=== PATIENT | female | born 1980 | race Caucasian/White ===

== ENCOUNTER → 2016-04-01 | Outpatient (REF) | payer BC | LOC: M LABNEURO 17:10 | PROVIDERS: ATTEND Physician Assistant Medical | DX: G50.0 Trigeminal neuralgia (principal) ==

== ENCOUNTER → 2016-07-29 | Outpatient (REF) | payer BC | LOC: M LABNEURO 16:57 | PROVIDERS: ATTEND Physician Assistant Medical | DX: G50.0 Trigeminal neuralgia (principal) ==

== ENCOUNTER → 2016-08-29 | Outpatient (CLI) | payer BC ==
[2016-08-29 13:45] LABS: BASO % 0.5 % (0.0-1.0); EOS # 0.1 K/mm3 (0.0-0.50); EOS % 1.4 % (0.0-3.0); LARGE UNSTAINED CELL # 0.1 K/mm3 (0.0-0.4); LARGE UNSTAINED CELL % 1.3 % (0.0-4.0); LYMPH # 2.4 K/mm3 (1.5-4.5); LYMPH % 26.9 % (24.0-44.0); MEAN CORPUSCULAR HGB CONC 34.6 g/dl (32.0-36.5); MEAN CORPUSCULAR VOLUME 89.5 fl (80.0-96.0); MONO # 0.5 K/mm3 (0.0-0.8); MONO % 5.7 % (0.0-5.0); NEUTROPHILS # 5.5 K/mm3 (1.8-7.7); NEUTROPHILS % 64.2 % (36.0-66.0); PLATELET COUNT, AUTOMATED 267 k/mm3 (150-450); RED CELL DISTRIBUTION WIDTH 13.1 % (11.5-14.5); WHITE BLOOD COUNT 8.5 K/mm3 (4.0-10.0)
[2016-08-29 13:55] LABS: FOLATE > 24.0 NG/ML; VITAMIN B12 LEVEL 553 PG/ML
[2016-08-29 14:43] LABS: ALBUMIN 3.5 GM/DL (3.2-5.2); ALBUMIN/GLOBULIN RATIO 1.06 (1.00-1.93); ALKALINE PHOSPHATASE 107 U/L (45-117); ALT/SGPT 20 U/L (12-78); ANION GAP 6 MEQ/L (8-16); AST/SGOT 9 U/L (15-37); BILIRUBIN,TOTAL 0.5 MG/DL (0.2-1.0); BLOOD UREA NITROGEN 11 MG/DL (7-18); CALCIUM LEVEL 8.8 MG/DL (8.5-10.1); CARBON DIOXIDE LEVEL 31 MEQ/L (21-32); CHLORIDE LEVEL 105 MEQ/L (98-107); CREATININE FOR GFR 0.83 MG/DL (0.55-1.02); GLOMERULAR FILTRATION RATE > 60.0 (>60); GLUCOSE, FASTING 83 MG/DL (70-105); SODIUM LEVEL 142 MEQ/L (136-145); TOTAL PROTEIN 6.8 GM/DL (6.4-8.2)
== END ==
LOC: M WUC 09:33
PROVIDERS: ATTEND Physician Assistant Medical
DX: R53.83 Other fatigue (principal); R51 Headache; R63.5 Abnormal weight gain; R20.9 Unspecified disturbances of skin sensation

== ENCOUNTER → 2016-12-18 | Outpatient (CLI) | payer BC ==
[2016-12-18 20:03] LABS: CARBAMAZEPINE (TEGRETOL) LEVEL 5.4 UG/ML (4.0-10.0)
== END ==
LOC: M WUC 18:26
PROVIDERS: ATTEND Physician Assistant Medical
DX: G50.0 Trigeminal neuralgia (principal); E55.9 Vitamin D deficiency, unspecified

== ENCOUNTER → 2017-04-09 | Outpatient (CLI) | payer BC ==
[2017-04-09 20:50] LABS: BASO # 0.1 10^3/uL (0.0-0.2); BASO % 0.7 % (0.0-1.0); EOS # 0.2 10^3/uL (0.0-0.50); EOS % 1.9 % (0.0-3.0); HEMOGLOBIN 13.7 g/dl (12.0-16.0); IMMATURE GRANULOCYTE % 0.3 % (0-0); LYMPH % 40.7 % (24.0-44.0); MEAN CORPUSCULAR HGB CONC 32.6 g/dl (32.0-36.5); MONO # 0.9 10^3/uL (0.0-0.8); NEUTROPHILS # 4.6 10^3/uL (1.8-7.7); NEUTROPHILS % 47.4 % (36.0-66.0); PLATELET COUNT, AUTOMATED 307 10^3/uL (150-450); RED BLOOD COUNT 4.72 10^6/uL (4.00-5.40); RED CELL DISTRIBUTION WIDTH 13.2 % (11.5-14.5); WHITE BLOOD COUNT 9.8 10^3/uL (4.0-10.0)
[2017-04-09 20:58] LABS: TOTAL 25(OH) VITAMIN D 23.2 NG/ML (30.0-100.0)
[2017-04-09 21:03] LABS: SODIUM LEVEL 142 MEQ/L (136-145)
[2017-04-09 21:03] LABS: ALT/SGPT 27 U/L (12-78); AST/SGOT 14 U/L (7-37); CARBAMAZEPINE (TEGRETOL) LEVEL 2.4 UG/ML (4.0-10.0)
== END ==
LOC: M WUC 17:39
DX: G50.0 Trigeminal neuralgia (principal); E55.9 Vitamin D deficiency, unspecified; Z51.81 Encounter for therapeutic drug level monitoring
CPT/HCPCS: 84460

== ENCOUNTER → 2017-08-08 | Outpatient (CLI) | payer BC ==
[2017-08-10 11:09] LABS: TOTAL 25(OH) VITAMIN D 30.6 NG/ML (30.0-100.0)
== END ==
LOC: M WUC 09:56
DX: E55.9 Vitamin D deficiency, unspecified (principal)
CPT/HCPCS: 82306

== ENCOUNTER → 2017-10-14 | Outpatient (CLI) | payer BC ==
[~2017-10-14] MED LIST: LIDOCAINE 1% SDV INJ 30 ML VIAL As Ordered; MIDAZOLAM INJ 2 MG/2 ML VIAL (J2250) As Ordered; fentaNYL 100 MCG/2 ML INJECTION (J3010) As Ordered
[2017-10-14 17:26] LABS: APPEARANCE, CSF CLEAR (CLEAR); COLOR, CSF COLORLESS (COLORLESS); CSF DIFF IF INDICATED? NO (NO); CSF RBC < 2 10^3/uL (<2); CSF TUBE# CELL CNT TUBE 3; CSF WBC 3 /uL (0-10)
[2017-10-14 17:39] LABS: CSF TUBE# GLU TUBE 1; CSF TUBE# TP TUBE 1; TOTAL PROTEIN,CSF 27.5 MG/DL (15-45)
[2017-10-14 17:39] LABS: GLUCOSE CSF 46 MG/DL (40-75)
[2017-10-20 00:06] LABS: IMMUNOGLOBULIN G CSF 1.7 mg/dL (0.0-8.6)
== END ==
LOC: M PAIN 13:45
DX: H47.339 Pseudopapilledema of optic disc, unspecified eye (principal)
CPT/HCPCS: J2250

== ENCOUNTER → 2017-12-21 | Outpatient (REF) | payer BC ==
[2017-12-21 13:57] LABS: CARBAMAZEPINE (TEGRETOL) LEVEL 2.1 UG/ML (4.0-10.0)
== END ==
LOC: M LABNEURO 09:50
DX: G50.0 Trigeminal neuralgia (principal)

== ENCOUNTER → 2018-06-08 | Outpatient (CLI) | payer BC ==
[2018-06-08 19:23] LABS: RHEUMATOID FACTOR QUANT < 10.0 IU/ML (<15.0)
[2018-06-08 19:33] LABS: TOTAL 25(OH) VITAMIN D 22.6 NG/ML (30.0-100.0)
[2018-06-10 14:21] LABS: ANTINUCLEAR ANTIBODIES DIRECT Negative (Negative)
[2018-06-11 00:07] LABS: Lyme Disease IgG/IgM Antibodie <0.91 ISR (0.00-0.90); Lyme Disease IgM Ab Quantitati <0.80 index (0.00-0.79)
== END ==
LOC: M WUC 16:38
PROVIDERS: ATTEND Physician Assistant Medical
DX: M25.50 Pain in unspecified joint (principal); R51 Headache; E55.9 Vitamin D deficiency, unspecified

== ENCOUNTER → 2018-12-03 | Outpatient (CLI) | payer BC ==
[~2018-12-03] MED LIST changes: +ACET1TAB16 PO; +CARB200T98 PO; -LIDOCAINE 1% SDV INJ 30 ML VIAL As Ordered; -MIDAZOLAM INJ 2 MG/2 ML VIAL (J2250) As Ordered; +MULTCAP PO; +REQU1TAB14 PO; +SUMA100T2 PO; +ZONI25CA13 PO; -fentaNYL 100 MCG/2 ML INJECTION (J3010) As Ordered
--- NOTE | 2018-12-20 00:19 | ECWPNPC ---
PATIENT NAME: AMY MURILLO : 1980 GENDER: FEMALE VISIT DATE: 12/03/2018 DISCHARGE DATE: 12/03/18 1428 VISIT LOCKED DATE TIME: PHYSICIAN: DAVID IVY MD RESOURCE: DVAID IVY MD REASON FOR APPOINTMENT 1. OCCIPITAL HEADACHES HISTORY OF PRESENT ILLNESS NEW PATIENT CONSULT: WHEN DID YOUR PAIN FIRST START? . BRIEFLY DESCRIBE HOW YOUR PAIN STARTED? . HOW DOES YOUR PAIN CHANGE WITH TIME? . DOES YOUR PAIN AWAKEN YOU FROM SLEEP? . HOW MANY HOURS OF SLEEP DO YOU NORMALLY GET? . ANY DIAGNOSTIC TESTING? . FACILITY WHERE TESTS WERE DONE? ____. PAIN TREATMENT TREATMENT YES CANCER HAVE YOU EVER HAD ANY TYPE OF CANCER?NO NO. 38 YEAR OLD FEMALE PATIENT WITH A HISTORY OF CHRONIC HEADACHES. THE PATIENT DESCRIBES THE PAIN TENDER, SHARP, AND CONTINUOUS WITH A PAIN SCORE OF 3-6/10 DEPENDING ON PHYSICAL ACTIVITY. THE PATIENT STATES SHE HAS BEEN SUFFERING FROM THIS PAIN FOR AROUND 4 YEARS. THE PATIENT SAYS SHE IS BEING SEEN BY DR. LUCIEN TAMAYO IN [place], WHO PERFORMED MULTIPLE SPINAL TAPS TO REDUCE THE INTRACRANIAL PRESSURE. THE PATIENT SAYS AFTER THE PROCEDURES, HER SYMPTOMS OF HEADACHES AND NUMBNESS ON THE LEFT SIDE AND HEARING ISSUES OF THE RIGHT EAR DECREASED EACH TIME. THE PATIENT SAYS SHE WAS REFERRED BY DR. TAMAYO TO RECEIVE OCCIPITAL BLOCKS AT OUR CLINIC, SINCE IT WILL BE MORE CONVENIENT FOR HER. PATIENT DENIES UNEXPLAINABLE WEIGHT LOSS, FEVER, CHILLS, NEW CHANGES ON HER URINARY OR BOWEL CONTROL. PAIN SCREENING: PATIENT HAS A COMPLAINT OF ACUTE OR CHRONIC PAIN :YES FALL RISK SCREENING: SCREENING : NO FALLS IN THE PAST YEAR. MEDINA INVENTORY: QUESTIONNAIRE ASSESSEDTBD SCORE VALUE CALCULATED TBD CURRENT MEDICATIONS TAKING TEGRETOL 200 MG TABLET 1 TABLET ORALLY TWICE A DAY, NOTES: 10/14/17 0700 TAKING IMITREX 100 MG TABLET 1 TABLET NEEDED ORALLY , NOTES: 1 WEEK AGO TAKING TYLENOL WITH CODEINE #3 300-30 MG TABLET 1 TABLET NEEDED ORALLY NEEDED, NOTES: 1 WEEK AGO TAKING ZONISAMIDE 50 MG CAPSULE 1 TAB ORALLY ONCE DAILY NEEDED MEDICATION LIST REVIEWED AND RECONCILED WITH THE PATIENT PAST MEDICAL HISTORY HEAD ACHES PRECOUSIOUS MENSES LEFT SACROILIAC JOINT FUSED FROM CERVICAL DYSPLASIA ENDOMETRIOSIS ALLERGIES TOPAMAX: NUMBNESS WITH " PINS AND NEEDLES" - SIDE EFFECTS SURGICAL HISTORY TONSILLECTOMY 1995 LAPAROSCOPY, D&C 1999 CRYOSURGERY 2000 ANGIOGRAM 11/2017 LUMBAR PUNCTURE 03/2018 LUMBAR PUNCTURE 01/2019 LUMBAR PUNCTURE FAMILY HISTORY FATHER: ALIVE, DIAGNOSED WITH DIABETES, HYPERTENSION MOTHER: ALIVE 1 SON(S) , 1 DAUGHTER(S) - HEALTHY. FATHER COPD, FATHER ON BLOOD THINNER, AAA, ANEURYSM NEAR THE HEARTSON HAS SPECIFIC ANTIBODY DEFICENCY, AND ASTHMA. SOCIAL HISTORY GENERAL: TOBACCO USE ARE YOU A:NONSMOKER OTHERS AT HOME: CHILDREN, SPOUSE. HOUSING: OWNS HOME. EDUCATION LEVEL OF EDUCATION:COLLEGE DIET: REGULAR. LANGUAGE LANGUAGES SPOKEN:BURKINAN RECREATIONAL DRUG USE DRUG USE?NO EXERCISE: DAILY. LEARNING BARRIERS / SPECIAL NEEDS BARRIERS TO LEARNING?NO PAIN CLINIC PFS, CLERGY, PUBLIC HEALTH REFERRALS PFS REFERRAL NEEDED?NO CLERGY REFERRAL NEEDED?NO PUBLIC HEALTH REFERRAL NEEDED?NO WAS THE PROVIDER NOTIFIED OF ANY PERTINENT INFO?NO HAS THE PATIENT BEEN EDUCATED REGARDING HIS/HER PLAN OF CARE?YES HAS THE PATIENT BEEN EDUCATED REGARDING PAIN, THE RISK FOR PAIN, THE IMPORTANCE OF EFFECTIVE PAIN MANAGEMENT, AND THE PAIN ASSESSMENT PROCESS?YES LATEX QUESTIONNAIRE LATEX ALLERGY : HAVE YOU EVER DEVELOPED ANY TYPE OF REACTION AFTER HANDLING LATEX PRODUCTS SUCH RUBBER GLOVES, CONDOMS, DIAPHRAGMS, BALLOONS, SOCKS, OR UNDERWEAR?NO LATEX ALLERGY : HAVE YOU EVER DEVELOPED ANY TYPE OF REACTION DURING OR AFTER DENTAL APPOINTMENT, VAGINAL/RECTAL EXAMINATION, SURGICAL PROCEDURE, OR ANY OTHER EXPOSURE?NO LATEX RISK : HAVE YOU EVER HAD ANY DIFFICULTY BREATHING OR HIVES AFTER EATING OR HANDLING ANY FRUITS, OR VEGETABLES; SUCH KIWI, BANANAS, STONE FRUITS, OR CHESTNUTSNO LATEX RISK : DO YOU HAVE A PREVIOUS PERSONAL HISTORY OF MORE THAN NINE SURGERIES, SPINA BIFIDA, OR REPEATED CATHERIZATIONS? NO LATEX RISK : ARE YOU FREQUENTLY EXPOSED TO LATEX PRODUCTS IN YOUR OCCUPATION?NO DATE ASKED : 12/03/2018 CAFFEINE CAFFEINE USE?YES HOW OFTEN AND HOW MUCH? 1 CUP OF COFFEE PER DAY ADVANCE DIRECTIVE ADVANCE DIRECTIVE DISCUSSED WITH PATIENT:YES JIL MURILLO () [phone] ANABAPTISM [id number] BAHAI MARITAL STATUS: . 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 HOSPITALIZATION/MAJOR DIAGNOSTIC PROCEDURE VAGINAL 2006 VAGINAL 2010 TONSILITIS 1996 REVIEW OF SYSTEMS REVIEWED BY: PROVIDER: DAVID IVY MD . CONSTITUTIONAL: ANY CHANGE IN YOUR MEDICAL CONDITION? NO . CHILLS NO . FEVER NO . INFECTION: DO YOU HAVE NEW INFECTIONS? NO . DO YOU HAVE HISTORY OF MRSA? NO . MUSCULOSKELETAL: ANY NEW PATTERNS OF PAIN OR NUMBNESS? NO . SYTEMIC LUPUS NO . GASTROENTEROLOGY: ANY NEW CHANGE IN BOWEL CONTROL? NO . BARRETTS ESOPHAGUS NO . CIRRHOSIS NO . HEPATITIS NO . LIVER FAILURE NO . ACID REFLUX NO . UNEXPLAINED WEIGHT LOSS NO . GENITOURINARY: ANY NEW CHANGE IN BLADDER CONTROL? NO . IS THERE A CHANCE YOU COULD BE ? NO . HEMATOLOGY/LYMPH: DO YOU TAKE ANY BLOOD THINNERS? (FOR EXAMPLE- COUMADIN, PLAVIX, AGGRENOX, PLATEL, PRADAXA, OR XARELTO) NO . WHEN WAS YOUR LAST DOSE? DATE: TIME: . LOW PLATELET COUNT NO . SICKLE CELL DISEASE NO . VON WILLIEBRANDS NO . FACTOR V LEIDEN NO . THALLASEMIA NO . ANEMIA NO . EASY BRUISING NO . NEUROLOGY: HAVE YOU FALLEN IN THE PAST 12 MONTHS? NO . ANY NEW EXTREMITY NUMBNESS OR WEAKNESS? NO . HEAD INJURY NO . DEMENTIA NO . CEREBRAL PALSY NO . MULTIPLE SCLEROSIS NO . DIZZINESS NO, INTERMITTENT, LASTING FOR HOURS . HEADACHE NO . STROKES NO . VERTIGO NO . CARDIOLOGY: DO YOU HAVE A PACEMAKER OR DEFIBRILLATOR? NO . ANGINA NO . HEART ATTACK NO . HEART SURGERY NO . CONGESTIVE HEART FAILURE/FLUID OVERLOAD NO . CHEST PAIN NO . HIGH BLOOD PRESSURE NO . IRREGULAR HEART BEAT NO . RESPIRATORY: HAVE YOU BEEN SICK IN THE PAST WEEK? NO . FEVER NO . FLU LIKE SYMPTOMS? NO . CPAP NO . BYPAP NO . ASTHMA NO . EMPHYSEMA NO . CHRONIC LUNG DISEASES NO . SHORTNESS OF BREATH ON EXERTION NO . DO YOU USE ANY TYPE OF TOBACCO (SMOKE, SMOKELESS, CHEW)? NO . COUGH NO . SNORING NO . INTEGUMENTARY: DO YOU HAVE ANY RASHES OR OPEN SORES? NO . ALLERGIC/IMMUNO: ARE YOU ALLERGIC TO IV DYE? NO . ANY NEW ALLERGIES? NO . PSYCHIATRIC: DO YOU HAVE THOUGHTS OF HURTING YOURSELF OR SOMEONE ELSE? NO . ARE YOU ABUSED, NEGLECTED, OR IN AN UNSAFE ENVIRONMENT? NO . ENDOCRINOLOGY: ARE YOU DIABETIC? NO . THYROID DISORDER NO . OTHER: DO YOU NEED ANY PRESCRIPTIONS? NO . IF YES, PLEASE LIST: ____ . ANY NEW PROBLEMS WITH YOUR MEDICATIONS? NO . WHEN DID YOU LAST EAT? ____ . WHEN DID YOU LAST DRINK? ____ . WHAT DID YOU LAST DRINK? ____ . NAME OF PERSON DRIVING YOU HOME? ____ . DO YOU HAVE ANY OTHER QUESTIONS OR CONCERNS NO . VITAL SIGNS WT 200 LBS, HT 66", BMI 32.28 INDEX, BP 130/81 MM HG, HR 91 /MIN, RR 16 /MIN, TEMP 96.0 F, OXYGEN SAT % 97%, NA INITIALS AW 1140, REVIEWED BY: VD. EXAMINATION GENERAL EXAMINATION: PATIENT IS ALERT O X 3 AND COOPERATIVE. LUNGS CLEAR, TO AUSCULTATION. HEART: NO MURMURS OR GALLOPS; FACIAL CRANIAL NERVES ARE GROSSLY NORMAL. GOOD SYMMETRY OF FACIAL MUSCLE MOVEMENT. NORMAL VISUAL GARDNER. TENDERNESS IN THE OCCIPITAL AREA. TENDERNESS IN THE CERVICAL AREA WITH EXTENSION AND ROTATION OF THE NECK. HAND PHYSICIAN AIDE STRENGTH IS NORMAL ON BOTH SIDES. X-RAY OF THE CERVICAL SPINE DONE ON 07/21/2013 SHOWS STRAIGHTENING OF THE SPINE WITH DECREASED EXTENSION. MRI OF THE BRAIN DONE ON 07/21/2013 SHOWS WITHIN NORMAL LIMITS. ASSESSMENTS BILATERAL OCCIPITAL NEURALGIA - M54.81 (PRIMARY) HISTORY OF INCREASED INTRACRANIAL PRESSURE. TREATMENT BILATERAL OCCIPITAL NEURALGIA CLINICAL NOTES: WE DISCUSSED SEVERAL ISSUES WITH MS. MURILLO' PAIN MANAGEMENT CASE. DUE TO THE CONSTANT HEADACHES AND FACE NUMBNESS, I WOULD LIKE TO MOVE FORWARD WITH AN OCCIPITAL BLOCK. I AM LOOKING FOR LONG LASTING PAIN RELIEF FROM THIS INJECTION FOR THE PATIENT. I WOULD LIKE TO DISCUSS THE PATIENT'S CASE WITH DR. TAMAYO AND TO CLARIFY IF THE PATIENT WAS PRESCRIBED AN EPISHOT. I WILL ALSO REQUEST FOR A COPY OF THE PATIENT'S RECENT CERVICAL MRI DONE AT [facility]. THE PATIENT WILL FOLLOW UP IN SEVERAL WEEKS AFTER THE PROCEDURE. INSTRUCTIONS WERE GIVEN, QUESTIONS WERE ANSWERED, PATIENT REPORTS UNDERSTANDING AND AGREES WITH THE PLAN. I, RAMONA TAVAREZ, DOCUMENTED THE ABOVE INFORMATION ACTING A SCRIBE FOR DR. IVY. I HAVE REVIEWED THE ABOVE DOCUMENT, WRITTEN BY RAMONA MCLAIN AND I VERIFY THAT IT IS ACCURATE. DEAR LUCIEN TAMAYO MD: THANK YOU FOR YOUR KIND REFERRAL OF AMY MURILLO. IF YOU WANT TO DISCUSS HER CASE WITH ME PLEASE CALL ME AT THE PAIN CENTER AT [phone]. SINCERELY, DAVID IVY MD PAIN MEDICINE . OTHERS NOTES: OCCIPITAL NEURALGIA MATERIAL WAS PUBLISHED TO [employer],OCCIPITAL NEURALGIA MATERIAL WAS PRINTED. PREVENTIVE MEDICINE PAIN CLINIC TEACHING: PROCEDURE TEACHING PRE OCCIPITAL NERVE BLOCK INSTRUCTIONS REVIEWED WITH PT. VERBALIZED UNDERSTANDING.. PROCEDURE CODES FA211 ESTABILISHED PATIENT [facility] CHARGE G8427 CURRENT MEDS W/DOSAGES DOCUMENTED G8730 PAIN ASSESS POS TOOL F/U PLAN DOC DISPOSITION & COMMUNICATION FOLLOW UP REASON: OCCIPITAL BLOCK ELECTRONICALLY SIGNED BY DAVID IVY MD, MD ON 12/19/2018 AT 04:47 PM EDT DISCLAIMER : THIS IS A VISIT SUMMARY EXTRACTED FROM THE [employer] CHART. IT IS NOT A COPY OF THE [employer] PROGRESS NOTE. HIRAM
== END ==
LOC: M PAIN 11:30
PROVIDERS: ATTEND Anesthesiology
DX: M54.81 Occipital neuralgia (principal); G89.29 Other chronic pain; Z88.8 Allergy status to other drugs, medicaments and biological substances; Z79.899 Other long term (current) drug therapy

== ENCOUNTER → 2019-01-15 | Outpatient (CLI) | payer BC ==
[~2019-01-15] MED LIST changes: -ZONI25CA13 PO; +ZONI25CA2 PO
[2019-01-15 12:44] LABS: BASO # 0.1 10^3/uL (0.0-0.2); BASO % 0.7 % (0.0-1.0); EOS # 0.2 10^3/uL (0.0-0.5); EOS % 1.8 % (0.0-3.0); HEMATOCRIT 45.5 % (36.0-47.0); HEMOGLOBIN 14.8 g/dl (12.0-15.5); LYMPH # 2.7 10^3/uL (1.5-5.0); LYMPH % 25.5 % (24.0-44.0); MEAN CORPUSCULAR HEMOGLOBIN 28.8 pg (27.0-33.0); MEAN CORPUSCULAR HGB CONC 32.5 g/dl (32.0-36.5); MEAN CORPUSCULAR VOLUME 88.7 fl (80.0-96.0); MONO # 0.8 10^3/uL (0.0-0.8); MONO % 7.4 % (0.0-5.0); NEUTROPHILS # 6.8 10^3/uL (1.5-8.5); PLATELET COUNT, AUTOMATED 313 10^3/uL (150-450); RED BLOOD COUNT 5.13 10^6/uL (4.00-5.40); WHITE BLOOD COUNT 10.6 10^3/uL (4.0-10.0)
[2019-01-15 12:51] LABS: ALBUMIN 3.5 GM/DL (3.2-5.2); ALT/SGPT 23 U/L (12-78); BILIRUBIN,TOTAL 0.4 MG/DL (0.2-1.0); BLOOD UREA NITROGEN 16 MG/DL (7-18); CALCIUM LEVEL 8.8 MG/DL (8.5-10.1); CARBON DIOXIDE LEVEL 27 MEQ/L (21-32); CHLORIDE LEVEL 108 MEQ/L (98-107); CREATININE FOR GFR 0.83 MG/DL (0.55-1.30); GLOMERULAR FILTRATION RATE > 60.0 (>60); GLUCOSE, FASTING 101 MG/DL (70-100); POTASSIUM SERUM 4.1 MEQ/L (3.5-5.1); SODIUM LEVEL 141 MEQ/L (136-145); TOTAL PROTEIN 7.1 GM/DL (6.4-8.2)
== END ==
LOC: M WUC 09:03
PROVIDERS: ATTEND Physician Assistant
DX: Z01.818 Encounter for other preprocedural examination (principal)

== ENCOUNTER 2019-01-27 10:26 | Day surgery (SDC) | payer BC ==
[~2019-01-27] VITALS: Ht 162.6 cm; Wt 89.3 kg
[~2019-01-27 10:26] MED LIST changes: +LR 1,000 ML IV SCH; +PHENAZOPYRIDINE 100 MG TAB PO ONE; +ceFAZolin SOD 2 GM in IV 1 EA IV ONE
[2019-01-27] MEDS ORDERED: KETOROLAC 60 MG/2 ML VIAL (J1885) As Ordered ONE (10:35)
[2019-01-27] MEDS ORDERED: PROPOFOL 200 MG/20 ML VIAL As Ordered ONE ×2 (10:35→16:21)
[2019-01-27] MEDS ORDERED: ONDANSETRON 4MG/2ML VIAL (J2405) As Ordered ONE (10:35)
[2019-01-27] MEDS ORDERED: LIDOCAINE 2% INJ 100 MG/5 ML SDV (FOR ANES.) As Ordered ONE ×3 (10:35→15:59)
[2019-01-27] MEDS ORDERED: SUGAMMADEX SODIUM 500 MG/5 ML VIAL (BRIDION) As Ordered ONE (10:35)
[2019-01-27] MEDS ORDERED: ROCURONIUM BROMIDE 50 MG/5 ML VIAL As Ordered ONE (10:35)
[2019-01-27] MEDS ORDERED: dexameTHASONE 4 MG/ML 1ML VIAL (J1100) As Ordered ONE ×2 (10:35→10:36)
[2019-01-27] MEDS ORDERED: KETAMINE HCL 200 MG/20 ML VIAL As Ordered ONE (10:36)
[2019-01-27] MEDS ORDERED: METHOCARBAMOL 1,000 MG/10 ML VIAL (J2800) As Ordered ONE (10:36)
[2019-01-27] MEDS ORDERED: MIDAZOLAM INJ 2 MG/2 ML VIAL (J2250) As Ordered ONE (10:37)
[2019-01-27] MEDS ORDERED: fentaNYL 100 MCG/2 ML INJECTION (J3010) As Ordered ONE (10:37)
[2019-01-27] MEDS ORDERED: HYDROmorphone HCL 2 MG/ML 1ML VIAL (J1170) As Ordered ONE (10:37)
[2019-01-27] MEDS ORDERED: PROPOFOL 500 MG/50 ML VIAL As Ordered ONE ×2 (10:38→13:31)
[2019-01-27] MEDS ORDERED: ACETAMINOPHEN 1000MG 100ML IV BTL (OFIRMEV) (J0131 PER 10MG) As Ordered ONE ×2 (10:47→13:35)
[2019-01-27 10:51] LABS: HEMATOCRIT 44.2 % (36.0-47.0); HEMOGLOBIN 14.6 g/dl (12.0-15.5); MEAN CORPUSCULAR HEMOGLOBIN 29.3 pg (27.0-33.0); MEAN CORPUSCULAR VOLUME 88.6 fl (80.0-96.0); PLATELET COUNT, AUTOMATED 326 10^3/uL (150-450); RED BLOOD COUNT 4.99 10^6/uL (4.00-5.40); WHITE BLOOD COUNT 7.7 10^3/uL (4.0-10.0)
[2019-01-27] MEDS ORDERED: VASOPRESSIN INJ 20 UNITS/ML VIAL As Ordered ONE (12:22)
[2019-01-27] MEDS ORDERED: MORPHINE 1MG/ML IN 0.9% NACL 100ML IV BAG As Ordered ONE (16:42)
[2019-01-27] MEDS ORDERED: MORPHINE 1MG/ML IN 0.9% NACL 100ML IV BAG IV PRN (17:00)
[2019-01-27] MEDS ORDERED: IBUPROFEN 600 MG TAB PO PRN (17:00)
[2019-01-27] MEDS ORDERED: diphenhydrAMINE INJ 50MG/ML VIAL (J1200) IV PRN (17:00)
[2019-01-27] MEDS ORDERED: NALBUPHINE HCL 10 MG/ML AMP (J2300) IV PRN (17:00)
[2019-01-27] MEDS ORDERED: EPIDURAL/PCA KEYS XX PRN (17:00)
[2019-01-27] MEDS ORDERED: NALOXONE INJ 0.4 MG/1 ML VIAL (J2310) IV PRN (17:00)
[2019-01-27] MEDS ORDERED: ONDANSETRON 4MG/2ML VIAL (J2405) IV PRN (17:15)
[2019-01-27] MEDS ORDERED: MEPERIDINE INJ 25 MG/ML VIAL (J2175) IV PRN (17:15)
[2019-01-27] MEDS ORDERED: oxyCODONE 5MG TAB PO PRN (17:15)
[2019-01-27] MEDS ORDERED: METOCLOPRAMIDE INJ 10MG/2ML VIAL (J2765) IV PRN (17:15)
[2019-01-27] MEDS ORDERED: fentaNYL 100 MCG/2 ML INJECTION (J3010) IV PRN (17:15)
[2019-01-27] MEDS ORDERED: PERCOCET 5MG/325MG TAB As Ordered ONE (17:33)
[2019-01-27 18:05] VITALS: BP 143/62
[2019-01-27 18:30] VITALS: BP 107/53
--- NOTE | 2019-01-27 18:42 | RO ---
DATE OF PROCEDURE: 01/27/2019 PREOPERATIVE DIAGNOSES: Symptomatic prolapse, failed pessary. POSTOPERATIVE DIAGNOSES: Symptomatic prolapse, failed pessary. PROCEDURE: Total vaginal hysterectomy with bilateral salpingectomy, intraperitoneal enterocele repair, then extraperitoneal sacral spinous suspension of the vaginal apex, anterior and posterior repair with cystourethroscopy and perineorrhaphy. SURGEON: Beatriz Pena MD TRAINMAN: None. ANESTHESIA: General endotracheal anesthesia. BRIEF DESCRIPTION OF PROCEDURE AND FINDINGS: Ofelia was brought to the operating room where sufficient general endotracheal anesthesia was induced. She was prepped and draped in the usual sterile fashion with the bladder emptied. The patient had taken Pyridium preoperatively. The cervix was then grasped with a single tooth tenacula and a circumferential incision made around the base of the cervix. The cardinal ligaments were then isolated, clamped, transected and ligated using MilesFraga clamps which were used throughout this portion of the case and #0 Vicryl suture which was also used throughout this portion of the case. The ureterosacral ligaments were then clamped, transected and ligated. They were somewhat attenuated and there was a posterior detect in the midline as well as some more towards the middle of the vagina. But, at this point, we had entry into the posterior peritoneum and the ureterosacrals were clamped, transected and ligated and secured to the vagina for later resecuring at the closure. Then, we dissected anteriorly for the bladder flap and then the uterine vasculature was carefully isolated, clamped, transected and ligated in a sequential fashion along the lateral aspect of the uterus until the level of the uteroovarian suspensory ligaments reached, which were also clamped, transected and ligated with the ovaries left in place in this 38-year-old individual and then the mesentery of the tubes were carefully brought down and progressively clamped, transected and ligated so that the uterus with the bilateral fallopian tubes could be delivered. Those pedicles were carefully evaluated. Good hemostasis was found on the left of the right side. The round ligament pedicle was then oversewn again and following this we had good hemostasis on the right as well and we did have that sort of midline posterior defect, so a Pederson culdoplasty intraperitoneal was performed and then the peritoneum itself closed over. Then extraperitoneally we dissected posteriorly for the sacrospinous suspension from a posterior approach. We also dissected anteriorly to free up the perivesical tissues and the anterior vaginal wall for the anterior repair. We then dissected to the sacrospinous ligament, having cleared it, we used two Anchorsure anchors. Each of those anchors had two Maxon #2-0 suture so in the end we had four Maxons to work with and we did a 4 point apical support coming much further down posteriorly and getting a good anterior support with that anterior pair in the sacrospinous suspension. We still had quite a bit of laxity posteriorly. We did close the cuff itself of course with #0 Vicryl and we used the Maxon to lift the tissues up and scoped her. We found normal jets of urine bilaterally. We did have to rinse out the bladder a little bit, she had quite a good affect from her Peridium, so the pictures are a little delayed. Apparently my reflexes are not as good as they could be today, but in person it was quite easy to see jets of urine bilaterally and there was no suture nor evidence of injury to the bladder and of course we did not use cautery, so there cannot be that kind of injury. But we had the cuff closed and after scoping her and emptying out the bladder again and finishing off the rest of the ties on the sacrospinous suspension. We had decent apical and anterior support and this of course still sexually active 38-year-old. The perineum itself had a lot of laxity at the posterior aspect of the vagina and so we removed a triangle shape of tissue, inverted triangle at the perineum for the perineorrhaphy and then another triangle of vaginal tissue excised and we had more left-sided defects than right. I was very careful, this patient absolutely wanted functional length and she wanted functional length more than she wanted correction, but she also wanted correction because of quite a bit of laxity. There was almost a Malawian cheese aspect to the rectovaginal septum, more so on the left and so we did a side to side plication, but I went a little past half way up the vagina and not higher, because I really did not want a result in over correction and discomfort. I also found absence of the perineal body, so we recreated that with #0 Vicryl and there was a separation of the rectovaginal septum from the perineal body and so we reconnected that with #0 Vicryl, but used #2-0 in the posterior repair cephalad from the perineal body. We then having resupported the posterior vagina reconnected the rectovaginal septum to the perineum and done the perineorrhaphy, then also closed the skin over these tissues using #2-0 Vicryl for that closure. At that point we had good support. The apex of the vagina to the patient's left. There was still about a quarter size sort of softer area, but with all the other normal support and the patient's desire to maintain optimal function, I felt that this was the optimal point to get to for her repair today. The case was then ended with the Hassan placed. Final procedure: Total hysterectomy, salpingectomy, enterocele repair, modified Pederson sacrospinous suspension, of course, extraperitoneal, anterior and posterior repair, cystourethroscopy, perineorrhaphy. She did have a rectal exam after the case to confirm absence of injury to the rectum. ESTIMATED BLOOD LOSS: About 100 mL. FLUIDS REPLACED: Crystalloid. COMPLICATIONS: None. CONDITION AND DISPOSITION: Ofelia tolerated the procedure well and was recovering in the recovery room in good condition.
[2019-01-27] MEDS: LR 1,000 ML IV SCH (19:00)
[2019-01-27 19:30] VITALS: BP 99/55
[2019-01-27 20:30] VITALS: BP 100/58
[2019-01-27 21:30] VITALS: BP 106/59
[2019-01-27 22:30] VITALS: BP 89/52
[2019-01-28] VITALS: BP 97/53
[2019-01-28 04:00] VITALS: BP 94/50
[2019-01-28] MEDS: LR 1,000 ML IV SCH (04:00)
[2019-01-28] MEDS ORDERED: NORCO, ANEXSIA 5/325MG TABLET (HYDROcodone/ACETAMINOPHEN) PO PRN (06:00)
[2019-01-28 07:04] LABS: HEMATOCRIT 33.6 % (36.0-47.0); MEAN CORPUSCULAR HEMOGLOBIN 29.3 pg (27.0-33.0); MEAN CORPUSCULAR HGB CONC 33.3 g/dl (32.0-36.5); PLATELET COUNT, AUTOMATED 309 10^3/uL (150-450); RED BLOOD COUNT 3.82 10^6/uL (4.00-5.40); WHITE BLOOD COUNT 18.4 10^3/uL (4.0-10.0)
[2019-01-28 07:09] LABS: HEMOGLOBIN 11.2 g/dl (12.0-15.5)
== END 2019-01-28 09:45 | disposition home or self-care (01) ==
LOC: M SDC 10:26 → M PED 18:05 → M SDC 01-28 09:45
PROVIDERS: ATTEND Obstetrics & Gynecology
DX: N81.9 Female genital prolapse, unspecified (principal); G43.909 Migraine, unspecified, not intractable, without status migrainosus; G93.2 Benign intracranial hypertension; Z79.899 Other long term (current) drug therapy
CPT/HCPCS: 36415; 57265; 57282; 58262; 81025; 85027; 86850; 86900; 86901; 88307; 96360; 96361; C1713; J0131; J0690; J1100; J1170; J2250; J2405; J2800; J3010

== ENCOUNTER → 2019-02-02 | Outpatient (CLI) | payer BC ==
[~2019-02-02] MED LIST changes: +BUPIVACAINE HCL 0.25% 10 ML VIAL As Ordered ONE; +BUPIVACAINE HCL 0.25% 30 ML VIAL As Ordered ONE; -LR 1,000 ML IV SCH; -PHENAZOPYRIDINE 100 MG TAB PO ONE; -ceFAZolin SOD 2 GM in IV 1 EA IV ONE; +diazePAM 5 MG TAB As Ordered ONE; +oxyCODONE 5MG TAB As Ordered ONE
--- NOTE | 2019-02-10 02:31 | ECWPNPC ---
PATIENT NAME: AMY MURILLO : 1980 GENDER: FEMALE VISIT DATE: 02/02/2019 DISCHARGE DATE: 02/02/19 1133 VISIT LOCKED DATE TIME: PHYSICIAN: DAVID IVY MD RESOURCE: DAVID IVY MD REASON FOR APPOINTMENT 1. OCCIPITAL NERVE BLK HISTORY OF PRESENT ILLNESS HISTORY OF PRESENT ILLNESS: PAIN THE PATIENT DESCRIBES THE PAIN... FALL RISK SCREENING: SCREENING :NO FALLS REPORTED IN THE LAST YEAR CURRENT MEDICATIONS TAKING IMITREX 100 MG TABLET 1 TABLET NEEDED ORALLY , NOTES: MORE THAN 1 WEEK AGO TAKING HYDROCODONE-ACETAMINOPHEN 5-325 MG TABLET 2 TABLETS NEEDED ORALLY EVERY 4 HRS, NOTES: 02/01/191999 TAKING IBUPROFEN 600 MG TABLET 1 TABLET WITH FOOD OR MILK NEEDED ORALLY EVERY 6 HRS, NOTES: 02-01-191999 NOT-TAKING TEGRETOL 200 MG TABLET 1 TABLET ORALLY TWICE A DAY NOT-TAKING TYLENOL WITH CODEINE #3 300-30 MG TABLET 1 TABLET NEEDED ORALLY NEEDED, NOTES: 1 WEEK AGO NOT-TAKING ZONISAMIDE 50 MG CAPSULE 1 TAB ORALLY ONCE DAILY NEEDED MEDICATION LIST REVIEWED AND RECONCILED WITH THE PATIENT PAST MEDICAL HISTORY HEAD ACHES PRECOUSIOUS MENSES LEFT SACROILIAC JOINT FUSED FROM CERVICAL DYSPLASIA ENDOMETRIOSIS RECTOCELE ALLERGIES TOPAMAX: NUMBNESS WITH " PINS AND NEEDLES" - SIDE EFFECTS SURGICAL HISTORY TONSILLECTOMY 1995 LAPAROSCOPY, D&C 1999 CRYOSURGERY 2000 ANGIOGRAM 11/2017 LUMBAR PUNCTURE 03/2018 LUMBAR PUNCTURE 01/2019 LUMBAR PUNCTURE VAGINAL HYSTERECTOMY ANTERIOR/POSTERIOR REPAIR 01/2019 FAMILY HISTORY FATHER: ALIVE, DIAGNOSED WITH DIABETES, HYPERTENSION MOTHER: ALIVE 1 SON(S) , 1 DAUGHTER(S) - HEALTHY. FATHER COPD, FATHER ON BLOOD THINNER, AAA, ANEURYSM NEAR THE HEARTSON HAS SPECIFIC ANTIBODY DEFICENCY, AND ASTHMA. SOCIAL HISTORY GENERAL: TOBACCO USE ARE YOU A:NONSMOKER OTHERS AT HOME: CHILDREN, SPOUSE. HOUSING: OWNS HOME. EDUCATION LEVEL OF EDUCATION:COLLEGE DIET: REGULAR. LANGUAGE LANGUAGES SPOKEN:AUSTRALIAN RECREATIONAL DRUG USE DRUG USE?NO EXERCISE: DAILY. LEARNING BARRIERS / SPECIAL NEEDS BARRIERS TO LEARNING?NO PAIN CLINIC PFS, CLERGY, PUBLIC HEALTH REFERRALS PFS REFERRAL NEEDED?NO CLERGY REFERRAL NEEDED?NO PUBLIC HEALTH REFERRAL NEEDED?NO WAS THE PROVIDER NOTIFIED OF ANY PERTINENT INFO?NO HAS THE PATIENT BEEN EDUCATED REGARDING HIS/HER PLAN OF CARE?YES HAS THE PATIENT BEEN EDUCATED REGARDING PAIN, THE RISK FOR PAIN, THE IMPORTANCE OF EFFECTIVE PAIN MANAGEMENT, AND THE PAIN ASSESSMENT PROCESS?YES LATEX QUESTIONNAIRE LATEX ALLERGY : HAVE YOU EVER DEVELOPED ANY TYPE OF REACTION AFTER HANDLING LATEX PRODUCTS SUCH RUBBER GLOVES, CONDOMS, DIAPHRAGMS, BALLOONS, SOCKS, OR UNDERWEAR?NO LATEX ALLERGY : HAVE YOU EVER DEVELOPED ANY TYPE OF REACTION DURING OR AFTER DENTAL APPOINTMENT, VAGINAL/RECTAL EXAMINATION, SURGICAL PROCEDURE, OR ANY OTHER EXPOSURE?NO LATEX RISK : HAVE YOU EVER HAD ANY DIFFICULTY BREATHING OR HIVES AFTER EATING OR HANDLING ANY FRUITS, OR VEGETABLES; SUCH KIWI, BANANAS, STONE FRUITS, OR CHESTNUTSNO LATEX RISK : DO YOU HAVE A PREVIOUS PERSONAL HISTORY OF MORE THAN NINE SURGERIES, SPINA BIFIDA, OR REPEATED CATHERIZATIONS? NO LATEX RISK : ARE YOU FREQUENTLY EXPOSED TO LATEX PRODUCTS IN YOUR OCCUPATION?NO DATE ASKED : 02/01/2019 CAFFEINE CAFFEINE USE?YES HOW OFTEN AND HOW MUCH? 1 CUP OF COFFEE PER DAY ADVANCE DIRECTIVE ADVANCE DIRECTIVE DISCUSSED WITH PATIENT:YES CHAN MURILLO () [phone] TENRIISM [id number] [facility] MARITAL STATUS: . 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 CONSTITUTIONAL: ANY CHANGE IN YOUR MEDICAL CONDITION? NO . CHILLS NO . FEVER NO . INFECTION: DO YOU HAVE NEW INFECTIONS? NO . DO YOU HAVE HISTORY OF MRSA? NO . MUSCULOSKELETAL: ANY NEW PATTERNS OF PAIN OR NUMBNESS? NO . GASTROENTEROLOGY: ANY NEW CHANGE IN BOWEL CONTROL? YES - STATES DUE TO RECENT SURGERY . GENITOURINARY: ANY NEW CHANGE IN BLADDER CONTROL? YES - STATES DUE TO RECENT SURGERY . IS THERE A CHANCE YOU COULD BE ? NO . HEMATOLOGY/LYMPH: DO YOU TAKE ANY BLOOD THINNERS? (FOR EXAMPLE- COUMADIN, PLAVIX, AGGRENOX, PLATEL, PRADAXA, OR XARELTO) NO . WHEN WAS YOUR LAST DOSE? DATE: TIME: . NEUROLOGY: HAVE YOU FALLEN IN THE PAST 12 MONTHS? NO . ANY NEW EXTREMITY NUMBNESS OR WEAKNESS? NO . CARDIOLOGY: DO YOU HAVE A PACEMAKER OR DEFIBRILLATOR? NO . RESPIRATORY: HAVE YOU BEEN SICK IN THE PAST WEEK? NO . FEVER NO . FLU LIKE SYMPTOMS? NO . COUGH NO . INTEGUMENTARY: DO YOU HAVE ANY RASHES OR OPEN SORES? NO . ALLERGIC/IMMUNO: ARE YOU ALLERGIC TO IV DYE? NO . ANY NEW ALLERGIES? NO . PSYCHIATRIC: DO YOU HAVE THOUGHTS OF HURTING YOURSELF OR SOMEONE ELSE? NO . ARE YOU ABUSED, NEGLECTED, OR IN AN UNSAFE ENVIRONMENT? NO . ENDOCRINOLOGY: ARE YOU DIABETIC? NO . OTHER: DO YOU NEED ANY PRESCRIPTIONS? NO . IF YES, PLEASE LIST: ____ . ANY NEW PROBLEMS WITH YOUR MEDICATIONS? NO . WHEN DID YOU LAST EAT? [id number] . WHEN DID YOU LAST DRINK? 02-01-192199 . WHAT DID YOU LAST DRINK? WATER . NAME OF PERSON DRIVING YOU HOME? CHAN MURILLO . DO YOU HAVE ANY OTHER QUESTIONS OR CONCERNS YES - HAD HYSTERECTOMY WITH ANTERIOR/POSTERIOR REPAIR 01-27-19 . VITAL SIGNS WT 196.2 LBS, HT 66", BMI 31.66 INDEX, BP 136/73 MM HG, HR 105 /MIN, RR 16 /MIN, TEMP 97.5 F, OXYGEN SAT % 98%, NA INITIALS SC 09:24, REVIEWED BY: LS. ASSESSMENTS BILATERAL OCCIPITAL NEURALGIA - M54.81 (PRIMARY) PROCEDURES PN OCCIPITAL NERVE BLOCK GREATER PRE PROCEDURE DIAGNOSIS OCCIPITAL NEURALGIA. POST PROCEDURE DIAGNOSIS OCCIPITAL NEURALGIA. PROCEDURE BILATERAL GREATER OCCIPITAL NERVE BLOCK SURGEON DR. DAVID IVY GEOTHERMAL OPERATING ENGINEER NONE ANESTHESIA LOCAL PRE PROCEDURE NOTE 38 YEAR-OLD PATIENT WITH HISTORY OF CHRONIC OCCIPITAL PAIN. THE PAIN IS LOCATED OVER THE OCCIPITAL AREA WITH RADIATION TOWARDS THE PARIETAL AREA OF THE CRANIUM. I EVALUATED THE PATIENT AND REVIEWED THE CHART. I WENT OVER THE RISKS, ALTERNATIVES, AND BENEFITS ASSOCIATED WITH THIS PROCEDURE. THE PATIENT WOULD LIKE TO PROCEED AND GAVE CONSENT TO PERFORM THE PROCEDURE. THE PATIENT DENIES UNEXPLAINABLE WEIGHT LOSS, FEVER, CHILLS, OR NEW CHANGES IN URINARY OR BOWEL CONTROL. DESCRIPTION OF PROCEDURE THE PATIENT WAS BROUGHT TO THE PROCEDURE ROOM AND PLACED IN THE SITTING POSITION. THE BILATERAL OCCIPITAL AREA WAS CLEANED WITH ALCOHOL. THE PROCEDURE WAS DONE USING STERILE TECHNIQUES. I CHECKED LATERALITY AND THE LEVEL WHERE THE PROCEDURE WAS GOING TO BE PERFORMED WITH THE PATIENT AND THE SUPPORTING STAFF AT THE MOMENT OF THE TIME OUT IN THE PROCEDURE ROOM. USING A 25-GAUGE NEEDLE, THE BILATERAL OCCIPITAL NERVES WERE INJECTED AT THE NUCHAL LINE, 1-INCH LATERAL OF MIDLINE. I USED A TOTAL OF 15 ML OF BUPIVACAINE 0.25% AT EACH NERVE. THERE WAS NO EVIDENCE OF BLOOD, PARESTHESIA OR CEREBROSPINAL FLUID DURING THE PROCEDURE. THE PATIENT WAS SENT TO THE RECOVERY ROOM. THE PATIENT WAS MOVING THE EXTREMITIES AND DOING WELL. THERE WAS NO COMPLICATION DURING THE PROCEDURE. POST PROCEDURE NOTE THE PATIENT WILL BE SEEN IN A FOLLOW UP IN THE NEXT FEW WEEKS. INSTRUCTIONS WERE GIVEN, QUESTIONS WERE ANSWERED, AND THE PATIENT EXPRESSED UNDERSTANDING AND AGREED WITH THE PLAN. I, RAMONA TAVAREZ, DOCUMENTED THE ABOVE INFORMATION ACTING A SCRIBE FOR DR. IVY. I HAVE REVIEWED THE ABOVE DOCUMENT, WRITTEN BY RAMONA TAVAREZ SCRIBE AND I VERIFY THAT IT IS ACCURATE. PROCEDURE CODES 97375 N BLOCK INJ OCCIPITAL, MODIFIERS: 50 DISPOSITION & COMMUNICATION FOLLOW UP 3 WEEKS ELECTRONICALLY SIGNED BY DAVID IVY MD, MD ON 02/09/2019 AT 03:46 PM EST DISCLAIMER : THIS IS A VISIT SUMMARY EXTRACTED FROM THE [employer] CHART. IT IS NOT A COPY OF THE [email or web address] PROGRESS NOTE. HIRAM
== END ==
LOC: M PAIN 09:15
PROVIDERS: ATTEND Anesthesiology
DX: M54.81 Occipital neuralgia (principal); Z88.8 Allergy status to other drugs, medicaments and biological substances; Z79.899 Other long term (current) drug therapy

== ENCOUNTER → 2019-02-16 | Outpatient (CLI) | payer BC ==
[~2019-02-16] MED LIST changes: -BUPIVACAINE HCL 0.25% 10 ML VIAL As Ordered ONE; -BUPIVACAINE HCL 0.25% 30 ML VIAL As Ordered ONE; -diazePAM 5 MG TAB As Ordered ONE; -oxyCODONE 5MG TAB As Ordered ONE
--- NOTE | 2019-03-03 05:02 | ECWPNPC ---
PATIENT NAME: AMY MURILLO : 1980 GENDER: FEMALE VISIT DATE: 02/16/2019 DISCHARGE DATE: 02/16/19 1034 VISIT LOCKED DATE TIME: PHYSICIAN: KATY RAMIREZ RESOURCE: KATY RAMIREZ REASON FOR APPOINTMENT 1. POST PROC HISTORY OF PRESENT ILLNESS HISTORY OF PRESENT ILLNESS: HERE FOR F/U OF CHRONIC HEAD PAIN,POST PROCEDURE.HAD BILAT. OCCIPITAL NERVE BLOCKS ON 02/02/19.REPORTING REDUCTION IN OCCIPITAL PAIN X7-10 DAYS .PAIN HAS RETURNED TO BASELINE.SUFFERS FROM DAILY HEAD PAIN AND LEFT FACIAL/ORAL PARATHESIAS.FOLLOWING WITH [facility] AND HAS BEEN SEEN IN [facility],DR SEALS.SHE HAS HAD MULTIPLE SPINAL TAPS TO REMOVE EXCESS FLUID WHICH SHE HAS 1 WEEK OF SIGNIFICANT IMPROVEMENT "I CAN FEEL LEFT SIDE OF FACE".HAS TRIALED MULTIPLE HEADACHE MEDICATIONS/MIGRAINE MEDICATIONS WITHOUT RELIEF OR WITH SIDE EFFECTS.SHE DOES NOT WISH TO BE ON ANY MEDICATIONS.SHE IS CONTEMPLATING HAVING A SHUNT PLACED.PER PATIENT SHE HAS BEEN DIAGNOSED WITH PSEUDOTUMOR CEREBRI.RATING PAIN VAS 3/10.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 PAIN THE PATIENT DESCRIBES THE PAIN... FALL RISK SCREENING: SCREENING :NO FALLS REPORTED IN THE LAST YEAR CURRENT MEDICATIONS TAKING IMITREX 100 MG TABLET 1 TABLET NEEDED ORALLY TAKING HYDROCODONE-ACETAMINOPHEN 5-325 MG TABLET 2 TABLETS NEEDED ORALLY EVERY 4 HRS TAKING IBUPROFEN 600 MG TABLET 1 TABLET WITH FOOD OR MILK NEEDED ORALLY EVERY 6 HRS NOT-TAKING TEGRETOL 200 MG TABLET 1 TABLET ORALLY TWICE A DAY NOT-TAKING TYLENOL WITH CODEINE #3 300-30 MG TABLET 1 TABLET NEEDED ORALLY NEEDED NOT-TAKING ZONISAMIDE 50 MG CAPSULE 1 TAB ORALLY ONCE DAILY NEEDED MEDICATION LIST REVIEWED AND RECONCILED WITH THE PATIENT PAST MEDICAL HISTORY HEAD ACHES PRECOUSIOUS MENSES LEFT SACROILIAC JOINT FUSED FROM CERVICAL DYSPLASIA ENDOMETRIOSIS RECTOCELE ALLERGIES TOPAMAX: NUMBNESS WITH " PINS AND NEEDLES" - SIDE EFFECTS SURGICAL HISTORY TONSILLECTOMY 1996 LAPAROSCOPY, D&C 2000 CRYOSURGERY 2001 ANGIOGRAM 11/2017 LUMBAR PUNCTURE 03/2018 LUMBAR PUNCTURE 01/2019 LUMBAR PUNCTURE VAGINAL HYSTERECTOMY ANTERIOR/POSTERIOR REPAIR 01/2019 FAMILY HISTORY FATHER: , DIAGNOSED WITH DIABETES, HYPERTENSION MOTHER: ALIVE 1 SON(S) , 1 DAUGHTER(S) - HEALTHY. FATHER COPD, FATHER ON BLOOD THINNER, AAA, ANEURYSM NEAR THE HEARTSON HAS SPECIFIC ANTIBODY DEFICENCY, AND ASTHMA. SOCIAL HISTORY GENERAL: TOBACCO USE ARE YOU A:NONSMOKER OTHERS AT HOME: CHILDREN, SPOUSE. HOUSING: OWNS HOME. EDUCATION LEVEL OF EDUCATION:COLLEGE DIET: REGULAR. LANGUAGE LANGUAGES SPOKEN:PASHTO DOMESTIC VIOLENCE DO YOU FEEL SAFE IN YOUR ENVIRONMENT?YES RECREATIONAL DRUG USE DRUG USE?NO EXERCISE: DAILY. 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 NEEDED?NO PAIN CLINIC PFS, CLERGY, PUBLIC HEALTH REFERRALS PFS REFERRAL NEEDED?NO CLERGY REFERRAL NEEDED?NO PUBLIC HEALTH REFERRAL NEEDED?NO HAS THE PATIENT BEEN EDUCATED REGARDING HIS/HER PLAN OF CARE?YES HAS THE PATIENT BEEN EDUCATED REGARDING PAIN, THE RISK FOR PAIN, THE IMPORTANCE OF EFFECTIVE PAIN MANAGEMENT, AND THE PAIN ASSESSMENT PROCESS?YES LATEX QUESTIONNAIRE LATEX ALLERGY : HAVE YOU EVER DEVELOPED ANY TYPE OF REACTION AFTER HANDLING LATEX PRODUCTS SUCH RUBBER GLOVES, CONDOMS, DIAPHRAGMS, BALLOONS, SOCKS, OR UNDERWEAR?NO LATEX ALLERGY : HAVE YOU EVER DEVELOPED ANY TYPE OF REACTION DURING OR AFTER DENTAL APPOINTMENT, VAGINAL/RECTAL EXAMINATION, SURGICAL PROCEDURE, OR ANY OTHER EXPOSURE?NO LATEX RISK : HAVE YOU EVER HAD ANY DIFFICULTY BREATHING OR HIVES AFTER EATING OR HANDLING ANY FRUITS, OR VEGETABLES; SUCH KIWI, BANANAS, STONE FRUITS, OR CHESTNUTSNO LATEX RISK : DO YOU HAVE A PREVIOUS PERSONAL HISTORY OF MORE THAN NINE SURGERIES, SPINA BIFIDA, OR REPEATED CATHERIZATIONS? NO LATEX RISK : ARE YOU FREQUENTLY EXPOSED TO LATEX PRODUCTS IN YOUR OCCUPATION?NO DATE ASKED : 02/16/2019 CAFFEINE CAFFEINE USE?YES HOW OFTEN AND HOW MUCH? 1 CUP OF COFFEE PER DAY ADVANCE DIRECTIVE ADVANCE DIRECTIVE DISCUSSED WITH PATIENT:YES CHAN MURILLO () [phone] ORTHODOXY [id number] PENTECOSTAL MARITAL STATUS: . 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 AD. HOSPITALIZATION/MAJOR DIAGNOSTIC PROCEDURE VAGINAL 2006 VAGINAL 2011 TONSILITIS 1996 SURGERY 01/2019 REVIEW OF SYSTEMS REVIEWED BY: PROVIDER: KATY YANEZ . CONSTITUTIONAL: ANY CHANGE IN YOUR MEDICAL CONDITION? NO . CHILLS NO . FEVER NO . INFECTION: DO YOU HAVE NEW INFECTIONS? NO . DO YOU HAVE HISTORY OF MRSA? NO . MUSCULOSKELETAL: ANY NEW PATTERNS OF PAIN OR NUMBNESS? NO . GASTROENTEROLOGY: ANY NEW CHANGE IN BOWEL CONTROL? NO . GENITOURINARY: ANY NEW CHANGE IN BLADDER CONTROL? NO . IS THERE A CHANCE YOU COULD BE ? NO . HEMATOLOGY/LYMPH: DO YOU TAKE ANY BLOOD THINNERS? (FOR EXAMPLE- COUMADIN, PLAVIX, AGGRENOX, PLATEL, PRADAXA, OR XARELTO) NO . WHEN WAS YOUR LAST DOSE? DATE: TIME: . NEUROLOGY: HAVE YOU FALLEN IN THE PAST 12 MONTHS? NO . ANY NEW EXTREMITY NUMBNESS OR WEAKNESS? NO . CARDIOLOGY: DO YOU HAVE A PACEMAKER OR DEFIBRILLATOR? NO . RESPIRATORY: HAVE YOU BEEN SICK IN THE PAST WEEK? NO . FEVER NO . FLU LIKE SYMPTOMS? NO . COUGH NO . INTEGUMENTARY: DO YOU HAVE ANY RASHES OR OPEN SORES? NO . ALLERGIC/IMMUNO: ARE YOU ALLERGIC TO IV DYE? NO . ANY NEW ALLERGIES? NO . PSYCHIATRIC: DO YOU HAVE THOUGHTS OF HURTING YOURSELF OR SOMEONE ELSE? NO . ARE YOU ABUSED, NEGLECTED, OR IN AN UNSAFE ENVIRONMENT? NO . ENDOCRINOLOGY: ARE YOU DIABETIC? NO . OTHER: DO YOU NEED ANY PRESCRIPTIONS? NO . IF YES, PLEASE LIST: ____ . ANY NEW PROBLEMS WITH YOUR MEDICATIONS? NO . WHEN DID YOU LAST EAT? ____ . WHEN DID YOU LAST DRINK? ____ . WHAT DID YOU LAST DRINK? ____ . NAME OF PERSON DRIVING YOU HOME? ____ . DO YOU HAVE ANY OTHER QUESTIONS OR CONCERNS NO HAD FLU SHOT 01/18/19 . VITAL SIGNS WT 195.2 LBS, HT 66", BMI 31.50 INDEX, BP 128/79 MM HG, HR 104 /MIN, RR 16 /MIN, TEMP 97.4 F, OXYGEN SAT % 95%, SAFE IN ENV? (Y/N) Y, NA INITIALS AW 0904, REVIEWED BY: AD. EXAMINATION GENERAL EXAMINATION: GENERAL AWAKE,ALERT ,PLEASANT . PSYCH AFFECT NORMAL . LUNGS: LUNG GARDNER ARE CLEAR TO AUSCULTATION BILATERALLY. GOOD MOVEMENT OF AIR . HEART: S1, S2 IN A REGULAR RATE AND RHYTHM. NO SIGNIFICANT MURMURS, RUBS OR GALLOPS NOTED . NEUROLOGIC EXAM: CN'S NORMAL TESTED + ROMBERG WITH FALLING TOWARD RIGHT. ASSESSMENTS BILATERAL OCCIPITAL NEURALGIA - M54.81 (PRIMARY) TREATMENT BILATERAL OCCIPITAL NEURALGIA NOTES: CONTINUE MEDICAL CARE WITH NEUROLOGY/MEDICATION MANAGEMENT.PATIENT WILL CALL FOR F/U IF SHE DECIDES SHE WOULD LIKE ANOTHER OCCIPITAL BLOCK. PROCEDURE CODES FA211 ESTABILISHED PATIENT [facility] CHARGE DISPOSITION & COMMUNICATION FOLLOW UP PT WILL CALL ELECTRONICALLY SIGNED BY RENATA HERNANDEZ ON 03/02/2019 AT 03:22 PM EST DISCLAIMER : THIS IS A VISIT SUMMARY EXTRACTED FROM THE [employer] CHART. IT IS NOT A COPY OF THE [employer] PROGRESS NOTE. HIRAM
== END ==
LOC: M PAIN 09:30
PROVIDERS: ATTEND Nurse Practitioner Family
DX: M54.81 Occipital neuralgia (principal); G89.29 Other chronic pain; Z88.8 Allergy status to other drugs, medicaments and biological substances; Z79.899 Other long term (current) drug therapy

== ENCOUNTER 2019-09-09 14:32 | Emergency (ER) | payer BC ==
[~2019-09-09] VITALS: Ht 162.6 cm; Wt 95.6 kg
[~2019-09-09 14:32] MED LIST changes: +ZONI25CA13 PO; -ZONI25CA2 PO
[2019-09-09] MEDS ORDERED: AIMO70IN SQ (14:52)
[2019-09-09] MEDS ORDERED: IMIT100T PO (14:52)
[2019-09-09 16:29] LABS: BASO # 0.1 10^3/uL (0.0-0.2); BASO % 0.5 % (0.0-1.0); EOS # 0.2 10^3/uL (0.0-0.5); EOS % 1.3 % (0.0-3.0); HEMATOCRIT 42.3 % (36.0-47.0); LYMPH # 3.1 10^3/uL (1.5-5.0); LYMPH % 21.9 % (24.0-44.0); MEAN CORPUSCULAR HEMOGLOBIN 28.6 pg (27.0-33.0); MEAN CORPUSCULAR HGB CONC 33.1 g/dl (32.0-36.5); MEAN CORPUSCULAR VOLUME 86.3 fl (80.0-96.0); MONO # 1.1 10^3/uL (0.0-0.8); MONO % 7.9 % (0.0-5.0); NEUTROPHILS # 9.7 10^3/uL (1.5-8.5); NEUTROPHILS % 67.9 % (36.0-66.0); PLATELET COUNT, AUTOMATED 310 10^3/uL (150-450); WHITE BLOOD COUNT 14.3 10^3/uL (4.0-10.0)
[2019-09-09 16:55] LABS: INR 0.92; PROTHROMBIN TIME 12.1 SECONDS (11.8-14.0)
[2019-09-09 16:56] LABS: ALBUMIN 3.3 GM/DL (3.2-5.2); ALT/SGPT 25 U/L (12-78); BILIRUBIN,DIRECT < 0.1 MG/DL (0.0-0.2); BILIRUBIN,TOTAL 0.2 MG/DL (0.2-1.0); C REACTIVE PROTEIN QUANTITATIV 1.22 MG/DL (0.00-0.30); CK-MB VALUE MASS < 1.0 NG/ML (<3.6); CPK CREATINE PHOSPHOKINASE 50 U/L (26-192); LIPASE 82 U/L (73-393); NT-PRO BNP 39 PG/ML (<125); PARTIAL THROMBOPLASTIN TIME 29.6 SECONDS (25.0-38.4); TROPONIN I < 0.02 NG/ML (< 0.10)
[2019-09-09 17:06] LABS: ERYTHROCYTE SEDIMENTATION RATE 16 mm/hr (0-20)
[2019-09-09 17:12] LABS: D-DIMER QUANT < 270 ng/ml (<500)
--- NOTE | 2019-09-09 17:50 | REP ---
Clinical: Acute chest pain . Comparison: 12/29/2005 . Technique: PA and lateral. Findings: The mediastinum and cardiac silhouette are normal. The lung perez are clear and without acute consolidation, effusion, or pneumothorax. The skeletal structures are intact and normal. Impression: 1. No acute cardiopulmonary process. Electronically Signed by Aden Brock MD 09/09/2019 05:42 P
--- NOTE | 2019-09-09 18:47 | REPVR ---
PROCEDURE INFORMATION: Exam: CT Head Without Contrast Exam date and time: 09/09/2019 6:26 PM Age: 38 years old Clinical indication: Pain; Headache; Additional info: Increased headache TECHNIQUE: Imaging protocol: Computed tomography of the head without contrast. Axial and coronal reformatted images were created and reviewed. Radiation optimization: All CT scans at this facility use at least one of these dose optimization techniques: automated exposure control; mA and/or kV adjustment per patient size (includes targeted exams where dose is matched to clinical indication); or iterative reconstruction. COMPARISON: MRI-Brain without Contrast 07/21/2013 5:04 PM FINDINGS: Brain: No CT evidence of acute intracranial hemorrhage or acute territorial infarction. No significant mass effect or midline shift. Basal cisterns patent. Ventricles: Normal in size and configuration. Bones/joints: No acute osseous abnormality. Sinuses: Grossly unremarkable. Mastoid air cells: Grossly unremarkable. Soft tissues: Grossly unremarkable. IMPRESSION: No CT evidence of acute intracranial pathology. Electronically signed by: Hay Winkler On 09/09/2019 18:47:08 PM
[2019-09-09] MEDS ORDERED: ACET50CA PO (18:59)
[2019-09-09 19:17] VITALS: BP 128/83
--- NOTE | 2019-09-09 20:53 | ECGEPIP ---
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
== END 2019-09-09 19:25 | disposition home or self-care (01) ==
LOC: M ED 14:32
DX: G93.2 Benign intracranial hypertension (principal); G43.909 Migraine, unspecified, not intractable, without status migrainosus; M54.81 Occipital neuralgia; G50.0 Trigeminal neuralgia; Z79.899 Other long term (current) drug therapy

== ENCOUNTER → 2019-11-12 | Outpatient (CLI) | payer BC ==
[~2019-11-12] MED LIST changes: +ACET50CA PO; +AIMO70IN SQ; +AIMO70IN2 SQ; +IBUP-1022 PO; +IMIT100T PO
[2019-11-12 18:35] LABS: BASO # 0.1 10^3/uL (0.0-0.2); BASO % 0.7 % (0.0-1.0); EOS # 0.2 10^3/uL (0.0-0.5); EOS % 1.5 % (0.0-3.0); HEMATOCRIT 42.5 % (36.0-47.0); HEMOGLOBIN 13.8 g/dl (12.0-15.5); LYMPH # 3.5 10^3/uL (1.5-5.0); LYMPH % 31.9 % (24.0-44.0); MEAN CORPUSCULAR HGB CONC 32.5 g/dl (32.0-36.5); MEAN CORPUSCULAR VOLUME 89.3 fl (80.0-96.0); MONO % 9.2 % (0.0-5.0); NEUTROPHILS # 6.1 10^3/uL (1.5-8.5); NEUTROPHILS % 56.3 % (36.0-66.0); PLATELET COUNT, AUTOMATED 287 10^3/uL (150-450); RED BLOOD COUNT 4.76 10^6/uL (4.00-5.40); WHITE BLOOD COUNT 10.8 10^3/uL (4.0-10.0)
== END ==
LOC: M WUC 11:10
PROVIDERS: ATTEND Nurse Practitioner Family
DX: G93.2 Benign intracranial hypertension (principal)

== ENCOUNTER → 2019-12-05 | Outpatient (CLI) | payer BC ==
[2019-12-05 17:14] LABS: ALBUMIN 3.4 GM/DL (3.2-5.2); ALT/SGPT 19 U/L (12-78); BILIRUBIN,TOTAL 0.5 MG/DL (0.2-1.0); BLOOD UREA NITROGEN 11 MG/DL (7-18); CALCIUM LEVEL 8.8 MG/DL (8.5-10.1); CARBON DIOXIDE LEVEL 29 MEQ/L (21-32); CHLORIDE LEVEL 106 MEQ/L (98-107); CREATININE FOR GFR 0.78 MG/DL (0.55-1.30); GLOMERULAR FILTRATION RATE > 60.0 (>58); GLUCOSE, FASTING 75 MG/DL (70-100); POTASSIUM SERUM 4.3 MEQ/L (3.5-5.1); SODIUM LEVEL 139 MEQ/L (136-145)
[2019-12-05 18:05] LABS: BASO # 0.1 10^3/uL (0.0-0.2); BASO % 0.6 % (0.0-1.0); EOS # 0.1 10^3/uL (0.0-0.5); EOS % 1.1 % (0.0-3.0); HEMATOCRIT 43.5 % (36.0-47.0); HEMOGLOBIN 14.3 g/dl (12.0-15.5); LYMPH # 2.9 10^3/uL (1.5-5.0); LYMPH % 24.3 % (24.0-44.0); MEAN CORPUSCULAR HEMOGLOBIN 29.1 pg (27.0-33.0); MEAN CORPUSCULAR HGB CONC 32.9 g/dl (32.0-36.5); MEAN CORPUSCULAR VOLUME 88.6 fl (80.0-96.0); MONO # 0.8 10^3/uL (0.0-0.8); MONO % 6.4 % (0.0-5.0); NEUTROPHILS % 67.1 % (36.0-66.0); PLATELET COUNT, AUTOMATED 308 10^3/uL (150-450); RED BLOOD COUNT 4.91 10^6/uL (4.00-5.40); WHITE BLOOD COUNT 11.9 10^3/uL (4.0-10.0)
[2019-12-05 18:43] LABS: ERYTHROCYTE SEDIMENTATION RATE 19 mm/hr (0-20)
== END ==
LOC: M WUC 12:21
PROVIDERS: ATTEND Internal Medicine Hematology & Oncology
DX: D72.829 Elevated white blood cell count, unspecified (principal)

== ENCOUNTER → 2020-11-07 | Outpatient (CLI) | payer BC ==
[~2020-11-07] MED LIST changes: +MULTTAB13 PO
--- NOTE | 2020-11-07 11:50 | REP ---
INDICATION: RIGHT SHOULDER PAIN COMPARISON: None. TECHNIQUE: Internal rotation, external rotation, and Y view. FINDINGS: No acute fracture or dislocation. The acromioclavicular and glenohumeral joints are intact. No periarticular calcifications or degenerative changes are appreciated. Sub acromial space is normal. Surrounding soft tissues are unremarkable. IMPRESSION: Normal age-appropriate right shoulder radiographs. <Electronically signed by Aden Brock > 11/07/20 [id number]
== END ==
LOC: M PLAIMG 11:13
PROVIDERS: ATTEND Physician Assistant Medical
DX: M25.511 Pain in right shoulder (principal)

== ENCOUNTER → 2021-02-11 | Outpatient (CLI) | payer BC ==
[~2021-02-11] MED LIST changes: +E-Z-GAS II EFFERVESCENT PACKET (SODIUM BICARB./CITRIC ACID/SIMETHICONE) As Ordered ONE; +E-Z-HD 98% w/w 340GM SUSP BTL As Ordered ONE; +E-Z-PAQUE 96% w/w SUSP 176GM BTL As Ordered ONE; +PANT40TA29 PO
== END ==
LOC: M RAD 08:36
PROVIDERS: ATTEND Physician Assistant Medical
DX: K21.9 Gastro-esophageal reflux disease without esophagitis (principal); R13.10 Dysphagia, unspecified; K57.50 Diverticulosis of both small and large intestine without perforation or abscess without bleeding

== ENCOUNTER → 2021-02-27 | Outpatient (CLI) | payer BC ==
[~2021-02-27] MED LIST changes: -E-Z-GAS II EFFERVESCENT PACKET (SODIUM BICARB./CITRIC ACID/SIMETHICONE) As Ordered ONE; -E-Z-HD 98% w/w 340GM SUSP BTL As Ordered ONE; -E-Z-PAQUE 96% w/w SUSP 176GM BTL As Ordered ONE
== END ==
LOC: M LABSMTC 10:29
PROVIDERS: ATTEND Anesthesiology
DX: Z01.818 Encounter for other preprocedural examination (principal); Z11.52 Encounter for screening for COVID-19

== ENCOUNTER 2021-03-04 12:59 | Day surgery (SDC) | payer BC ==
[~2021-03-04] VITALS: Ht 157.5 cm; Wt 100.6 kg
[~2021-03-04 12:59] MED LIST changes: +NS 1,000 ML IV ONE
[2021-03-04] MEDS ORDERED: GLYCOPYRROLATE INJ 0.2 MG/ML 2 ML VIAL As Ordered ONE (13:25)
[2021-03-04] MEDS ORDERED: LIDOCAINE 2% 100MG/5ML SDV (FOR ANES.) As Ordered ONE (13:25)
[2021-03-04] MEDS ORDERED: propofoL 200 MG/20 ML VIAL As Ordered ONE ×4 (13:25→14:00)
[2021-03-04] MEDS: NS 1,000 ML IV ONE (13:43)
--- NOTE | 2021-03-04 14:26 | ROOR ---
Patient Name: Ofelia Dexter Procedure Date: 03/04/2021 1:52 PM Date of : 1980 Age: 40 Room: [facility] Gender: Female Note Status: Finalized Procedure: Upper GI endoscopy Indications: Epigastric abdominal pain, Dysphagia, Heartburn Providers: Jarret Nation MD Referring MD: Estrella Phipps MD Requesting Provider: Medicines: Monitored Anesthesia Care Complications: No immediate complications. Procedure: Pre-Anesthesia Assessment: - Prior to the procedure, a History and Physical was performed, and patient medications and allergies were reviewed. The patient is competent. The risks and benefits of the procedure and the sedation options and risks were discussed with the patient. All questions were answered and informed consent was obtained. Patient identification and proposed procedure were verified by the physician, the nurse and the anesthesiologist in the procedure room. Mental Status Examination: alert and oriented. Airway Examination: normal oropharyngeal airway and neck mobility. Respiratory Examination: clear to auscultation. CV Examination: normal. Prophylactic Antibiotics: The patient does not require prophylactic antibiotics. Prior Anticoagulants: The patient has taken no previous anticoagulant or antiplatelet agents. ASA Grade Assessment: II - A patient with mild systemic disease. After reviewing the risks and benefits, the patient was deemed in satisfactory condition to undergo the procedure. The anesthesia plan was to use monitored anesthesia care (MAC). Immediately prior to administration of medications, the patient was re-assessed for adequacy to receive sedatives. The heart rate, respiratory rate, oxygen saturations, blood pressure, adequacy of pulmonary ventilation, and response to care were monitored throughout the procedure. The physical status of the patient was re-assessed after the procedure. The Endoscope was introduced through the mouth, and advanced to the second part of duodenum. The upper GI endoscopy was accomplished without difficulty. The patient tolerated the procedure well. Findings: LA Grade C (one or more mucosal breaks continuous between tops of 2 or more mucosal folds, less than 75% circumference) esophagitis with no bleeding was found in the lower third of the esophagus. Biopsies were taken with a cold forceps for histology. Biopsies were obtained from the proximal and distal esophagus with cold forceps for histology of suspected eosinophilic esophagitis. Verification of patient identification for the specimen was done by the physician and nurse using the patient's name, date and medical record number. Estimated blood loss was minimal. There is no endoscopic evidence of stricture in the entire esophagus. Scattered mild inflammation characterized by congestion (edema), erythema and granularity was found in the gastric antrum. Biopsies were taken with a cold forceps for Helicobacter pylori testing. The duodenal bulb, second portion of the duodenum and third portion of the duodenum were normal. Biopsies for histology were taken with a cold forceps for evaluation of celiac disease. Impression: - LA Grade C reflux esophagitis. Rule out Wesley's esophagus. Biopsied. - Gastritis. Biopsied. - Normal duodenal bulb, second portion of the duodenum and third portion of the duodenum. Biopsied. Recommendation: - Patient has a contact number available for emergencies. The signs and symptoms of potential delayed complications were discussed with the patient. Return to normal activities tomorrow. Written discharge instructions were provided to the patient. - High fiber diet. - Continue present medications. - Await pathology results. - Use Protonix (pantoprazole) 40 mg PO twice daily - to be taken in morning (1/2 hour before breakfast) and at bedtime ( atleast 3 hours after last meal) for 3 months. - Use sucralfate suspension 1 gram PO QID for 4 weeks. - Follow an antireflux regimen. - Return to GI clinic in [facility] (address: [address] [place] [address], 1st floor, [place], [place],[address]) in 4 -- 6 weeks. Please call GI clinic @ [phone] for apppointment date and time. - Repeat upper endoscopy in 3 months to evaluate the response to therapy and depending on the symptoms and clinical response. - Return to primary care physician. Procedure Code(s): --- Professional --- 75704, Esophagogastroduodenoscopy, flexible, transoral; with biopsy, single or multiple Diagnosis Code(s): --- Professional --- K21.0, Gastro-esophageal reflux disease with esophagitis K29.70, Gastritis, unspecified, without bleeding R10.13, Epigastric pain R13.10, Dysphagia, unspecified R12, Heartburn CPT copyright 2019 [employer]. All rights reserved. The codes documented in this report are preliminary and upon barrel rifler broach review may be revised to meet current compliance requirements. Jarret Nation MD Jarret Nation MD 03/04/2021 2:25:49 PM Electronically signed by Jarret Nation MD Number of Addenda: 0 Note Initiated On: 03/04/2021 1:52 PM Estimated Blood Loss: Estimated blood loss was minimal.
[2021-03-04 14:30] VITALS: BP 112/78
== END 2021-03-04 14:38 | disposition home or self-care (01) ==
LOC: M OPP 12:59
PROVIDERS: ATTEND Internal Medicine Gastroenterology
DX: K21.00 Gastro-esophageal reflux disease with esophagitis, without bleeding (principal); K29.70 Gastritis, unspecified, without bleeding; R10.13 Epigastric pain; R13.10 Dysphagia, unspecified; Z79.899 Other long term (current) drug therapy; Z80.0 Family history of malignant neoplasm of digestive organs; Z80.6 Family history of leukemia

== ENCOUNTER → 2021-05-14 | Outpatient (CLI) | payer BC ==
[~2021-05-14] MED LIST changes: -NS 1,000 ML IV ONE
[2021-05-14 13:13] LABS: BASO # 0.1 10^3/uL (0.0-0.2); BASO % 0.8 % (0.0-1.0); EOS # 0.2 10^3/uL (0.0-0.5); EOS % 1.9 % (0.0-3.0); HEMATOCRIT 39.6 % (36.0-47.0); HEMOGLOBIN 13.1 g/dl (12.0-15.5); LYMPH # 2.8 10^3/uL (1.5-5.0); LYMPH % 32.4 % (24.0-44.0); MEAN CORPUSCULAR HEMOGLOBIN 28.1 pg (27.0-33.0); MEAN CORPUSCULAR HGB CONC 33.1 g/dl (32.0-36.5); MEAN CORPUSCULAR VOLUME 84.8 fl (80.0-96.0); MONO # 0.8 10^3/uL (0.0-0.8); MONO % 8.9 % (2.0-8.0); NEUTROPHILS # 4.9 10^3/uL (1.5-8.5); NEUTROPHILS % 55.7 % (36.0-66.0); PLATELET COUNT, AUTOMATED 330 10^3/uL (150-450); RED BLOOD COUNT 4.67 10^6/uL (4.00-5.40); WHITE BLOOD COUNT 8.7 10^3/uL (4.0-10.0)
[2021-05-14 13:39] LABS: ALBUMIN 3.4 GM/DL (3.2-5.2); ALT/SGPT 26 U/L (12-78); BILIRUBIN,TOTAL 0.4 MG/DL (0.2-1.0); BLOOD UREA NITROGEN 18 MG/DL (7-18); CALCIUM LEVEL 8.8 MG/DL (8.5-10.1); CARBON DIOXIDE LEVEL 30 MEQ/L (21-32); CHLORIDE LEVEL 108 MEQ/L (98-107); CREATININE FOR GFR 0.72 MG/DL (0.55-1.30); GLOMERULAR FILTRATION RATE > 60.0 (>58); GLUCOSE, FASTING 88 MG/DL (70-100); POTASSIUM SERUM 4.2 MEQ/L (3.5-5.1); RHEUMATOID FACTOR QUANT < 10.0 IU/ML (<15.0); SODIUM LEVEL 142 MEQ/L (136-145)
[2021-05-14 14:03] LABS: ERYTHROCYTE SEDIMENTATION RATE 31 mm/hr (0-20)
[2021-05-14 14:08] LABS: FOLATE 12.5 NG/ML; TOTAL 25(OH) VITAMIN D 24.7 NG/ML (30.0-100.0); VITAMIN B12 LEVEL 533 PG/ML
[2021-05-14 14:29] LABS: HEMOGLOBIN A1c 5.5 %
== END ==
LOC: M PLALAB 10:31
PROVIDERS: ATTEND Psychiatry & Neurology Neurology
DX: R51.9 Headache, unspecified (principal); G62.9 Polyneuropathy, unspecified

== ENCOUNTER → 2021-05-20 | Outpatient (CLI) | payer BC | LOC: M WHC 11:52 | PROVIDERS: ATTEND Obstetrics & Gynecology | DX: R92.8 Other abnormal and inconclusive findings on diagnostic imaging of breast (principal) ==

== ENCOUNTER → 2021-06-17 | Outpatient (REF) | payer BC ==
[2021-06-17 19:21] LABS: ALBUMIN 3.7 GM/DL (3.2-5.2); BILIRUBIN,DIRECT 0.1 MG/DL (0.0-0.2); BILIRUBIN,TOTAL 0.4 MG/DL (0.2-1.0); TOTAL PROTEIN 7.6 GM/DL (6.4-8.2)
== END ==
LOC: M PLALAB 17:24
PROVIDERS: ATTEND Physician Assistant Medical
DX: R10.13 Epigastric pain (principal)

== ENCOUNTER → 2021-07-04 | Outpatient (CLI) | payer BC ==
[~2021-07-04] MED LIST changes: -ACET1TAB16 PO; +ACET300T48 PO
== END ==
LOC: M WHC 08:20
PROVIDERS: ATTEND Physician Assistant Medical
DX: R10.13 Epigastric pain (principal)

== ENCOUNTER → 2021-11-28 | Outpatient (REF) | payer BC ==
[~2021-11-28] MED LIST changes: +AIMO70IN2
== END ==
LOC: M SFHCDERM 17:41
PROVIDERS: ATTEND Physician Assistant
DX: D23.72 Other benign neoplasm of skin of left lower limb, including hip (principal)

== ENCOUNTER → 2022-03-04 | Outpatient (REF) | payer BC ==
[~2022-03-04] MED LIST changes: +BOTO200I IJ
== END ==
LOC: M SFHCDERM 16:38
PROVIDERS: ATTEND Physician Assistant
DX: D49.2 Neoplasm of unspecified behavior of bone, soft tissue, and skin (principal)

== ENCOUNTER → 2022-04-01 | Outpatient (REF) | payer BC | LOC: M SFHCDERM 14:23 | PROVIDERS: ATTEND Physician Assistant | DX: D18.01 Hemangioma of skin and subcutaneous tissue (principal) ==

== ENCOUNTER → 2022-12-05 | Outpatient (CLI) | payer BC | LOC: M WHC 10:31 | PROVIDERS: ATTEND Nurse Practitioner Family | DX: Z12.31 Encounter for screening mammogram for malignant neoplasm of breast (principal) ==

== ENCOUNTER → 2023-04-20 | Outpatient (CLI) | payer BC ==
[2023-04-20 13:25] LABS: BASO # 0.1 10^3/uL (0.0-0.2); BASO % 0.5 % (0.0-1.0); EOS # 0.1 10^3/uL (0.0-0.5); EOS % 1.4 % (0.0-3.0); HEMATOCRIT 40.6 % (36.0-47.0); HEMOGLOBIN 12.9 g/dl (12.0-15.5); LYMPH # 2.4 10^3/uL (1.5-5.0); LYMPH % 26.3 % (24.0-44.0); MEAN CORPUSCULAR HEMOGLOBIN 27.5 pg (27.0-33.0); MEAN CORPUSCULAR HGB CONC 31.8 g/dl (32.0-36.5); MEAN CORPUSCULAR VOLUME 86.6 fl (80.0-96.0); MONO # 0.7 10^3/uL (0.0-0.8); MONO % 7.3 % (2.0-8.0); NEUTROPHILS # 5.9 10^3/uL (1.5-8.5); NEUTROPHILS % 64.2 % (36.0-66.0); PLATELET COUNT, AUTOMATED 310 10^3/uL (150-450); RED BLOOD COUNT 4.69 10^6/uL (4.00-5.40); WHITE BLOOD COUNT 9.3 10^3/uL (4.0-10.0)
[2023-04-20 14:06] LABS: THYROID STIMULATING HORMONE 1.845 uIU/ML (0.55-4.78)
[2023-04-20 14:08] LABS: ALBUMIN 3.2 G/DL (3.2-5.2); ALKALINE PHOSPHATASE 83 U/L (46-116); ALT/SGPT 15 U/L (7.0-40); AST/SGOT 13 U/L (<34); BILIRUBIN,TOTAL 0.4 MG/DL (0.3-1.2); BLOOD UREA NITROGEN 18 MG/DL (9-23); CALCIUM LEVEL 8.2 MG/DL (8.5-10.1); CARBON DIOXIDE LEVEL 23 MMOL/L (20-31); CHLORIDE LEVEL 114 MMOL/L (98-107); CHOLESTEROL LEVEL 172 MG/DL (<200); CHOLESTEROL RISK RATIO 4.73 (<5); CREATININE FOR GFR 0.85 MG/DL (0.55-1.30); FREE T4 1.12 NG/DL (0.89-1.76); GLOMERULAR FILTRATION RATE > 60.0 (>58); GLUCOSE, FASTING 93 MG/DL (60-100); HDL CHOLESTEROL 36.3 MG/DL (>40); LDL CHOLESTEROL 117.7 MG/DL (<100); NON-HDL-C 135.7 MG/DL; POTASSIUM SERUM 4.2 MMOL/L (3.5-5.1); SODIUM LEVEL 143 MMOL/L (136-145); TOTAL PROTEIN 6.3 G/DL (5.7-8.2); TRIGLYCERIDES LEVEL 90 MG/DL (<150)
== END ==
LOC: M PLALAB 08:46
PROVIDERS: ATTEND Nurse Practitioner Family
DX: Z00.00 Encounter for general adult medical examination without abnormal findings (principal); M53.3 Sacrococcygeal disorders, not elsewhere classified; S33.2XXA Dislocation of sacroiliac and sacrococcygeal joint, initial encounter; X58.XXXA Exposure to other specified factors, initial encounter; Y92.9 Unspecified place or not applicable; Y93.9 Activity, unspecified; Y99.9 Unspecified external cause status

== ENCOUNTER → 2023-05-30 | Outpatient (CLI) | payer BC | LOC: M RAD 08:10 | PROVIDERS: ATTEND Orthopaedic Surgery | DX: M54.50 Low back pain, unspecified (principal); M53.3 Sacrococcygeal disorders, not elsewhere classified; D18.09 Hemangioma of other sites; G96.191 Perineural cyst; R93.7 Abnormal findings on diagnostic imaging of other parts of musculoskeletal system ==

== ENCOUNTER → 2023-12-31 | Outpatient (CLI) | payer BC ==
[~2023-12-31] MED LIST changes: +CARB-115 PO; -CARB200T98 PO
== END ==
LOC: M WHC 15:32
PROVIDERS: ATTEND Nurse Practitioner Family
DX: Z12.31 Encounter for screening mammogram for malignant neoplasm of breast (principal); R92.323 Mammographic fibroglandular density, bilateral breasts; N63.21 Unspecified lump in the left breast, upper outer quadrant

== ENCOUNTER → 2024-01-18 | Outpatient (CLI) | payer BC | LOC: M WHC 12:12 | PROVIDERS: ATTEND Nurse Practitioner Family | DX: R92.8 Other abnormal and inconclusive findings on diagnostic imaging of breast (principal); N63.21 Unspecified lump in the left breast, upper outer quadrant ==

== ENCOUNTER → 2024-01-21 | Outpatient (CLI) | payer BC ==
[~2024-01-21] MED LIST changes: +LIDOCAINE 1% MDV 20ML VIAL ONE; +SODIUM BICARBONATE 4.2% INJ 10ML SYRINGE ONE
[2024-01-21 07:55] VITALS: TEMP 98.4
[2024-01-21 08:43] VITALS: BP 114/76; O2SAT 97
== END ==
LOC: M WHCPRO 07:45
PROVIDERS: ATTEND Nurse Practitioner Family
DX: N63.22 Unspecified lump in the left breast, upper inner quadrant (principal); N60.02 Solitary cyst of left breast

== ENCOUNTER → 2024-07-20 | Outpatient (CLI) | payer BC, OTHER ==
[~2024-07-20] MED LIST changes: -LIDOCAINE 1% MDV 20ML VIAL ONE; -SODIUM BICARBONATE 4.2% INJ 10ML SYRINGE ONE
== END ==
LOC: M WHC 15:25
PROVIDERS: ATTEND Nurse Practitioner Family
DX: N60.02 Solitary cyst of left breast (principal); N63.20 Unspecified lump in the left breast, unspecified quadrant

== ENCOUNTER → 2025-01-09 | Outpatient (CLI) | payer OTHER ==
[~2025-01-09] MED LIST changes: -IBUP-1022 PO; +IBUP600T42 PO
== END ==
LOC: M WHC 14:32
PROVIDERS: ATTEND Nurse Practitioner Family
DX: Z12.31 Encounter for screening mammogram for malignant neoplasm of breast (principal); N60.02 Solitary cyst of left breast; R92.8 Other abnormal and inconclusive findings on diagnostic imaging of breast
CPT/HCPCS: 76642; 77066; G0279